=== PATIENT | female | born 1990 | race Caucasian/White ===

== ENCOUNTER 2022-01-07 16:32 | Emergency (ER) | payer OTHER ==
[~2022-01-07] VITALS: Ht 154.9 cm; Wt 47.7 kg
[2022-01-07 18:25] LABS: COVID AG,FIA SOURCE NASAL SWAB
[2022-01-07] MEDS ORDERED: ALBUTEROL SULFATE HFA 90 MCG/PUFF 8 GM INHALER IH ONE (19:30)
[2022-01-07 21:35] VITALS: BP 111/63
== END 2022-01-07 21:53 | disposition home or self-care (01) ==
LOC: EMS 16:32
DX: J06.9 Acute upper respiratory infection, unspecified (principal); Z20.822 Contact with and (suspected) exposure to COVID-19
CPT/HCPCS: 71046; 87430; 94640; 99284; J3535

== ENCOUNTER 2022-05-08 07:05 | Emergency (ER) | payer OTHER ==
[~2022-05-08] VITALS: Ht 165.1 cm; Wt 61.4 kg
[2022-05-08 07:36] LABS: BASOPHILS % (AUTO) 0.8 % (0.0-2.0); EOSINOPHILS % (AUTO) 0.4 % (1.0-6.0); HEMATOCRIT 38.8 % (36-46); LYMPHOCYTES # (AUTO) 3.3 K/uL (1.0-4.8); LYMPHOCYTES % (AUTO) 31.3 % (22.0-44.0); MEAN CORPUSCULAR HEMOGLOBIN 29.1 pg (26.0-34.0); MEAN CORPUSCULAR HGB CONC 33.6 G/dL (31.0-37.0); MEAN CORPUSCULAR VOLUME 87 fL (80-100); MONOCYTES # (AUTO) 0.8 K/uL (0.1-1.0); MONOCYTES % (AUTO) 7.5 % (2.0-9.0); NEUTROPHILS # (AUTO) 6.2 K/uL (1.8-7.7); PLATELET COUNT (AUTO) 321 K/uL (150-450); RED BLOOD CELL COUNT(AUTO) 4.48 MIL/uL (4.00-5.20); RED CELL DISTRIBUTION WIDTH 13.1 % (11.5-14.5)
[2022-05-08 07:45] LABS: ANION GAP 11 mmol/L (8-16); CALCIUM, TOTAL 9.3 mg/dL (8.8-10.5); CARBON DIOXIDE 25 mmol/L (22-29); CHLORIDE 104 mmol/L (98-107); CREATININE 0.67 mg/dL (0.60-1.30); GLOMERULAR FILTR. RATE CALC > 60 mL/min (>60); GLUCOSE,RANDOM 98 mg/dL (70-110); POTASSIUM 3.6 mmol/L (3.5-5.1); SODIUM SERUM 140 mmol/L (136-145); UREA NITROGEN, BLOOD 12 mg/dL (7-18)
[2022-05-08 07:59] LABS: ALANINE AMINOTRANSFERASE 10 U/L (12-78); ALKALINE PHOSPHATASE 66 U/L (46-116); ASPARTATE AMINOTRANSFERASE 14 U/L (15-37); BILIRUBIN,TOTAL 0.6 mg/dL (0.1-1.0); HCG,QUANTITATIVE < 1 mIU/mL (0-6); TOTAL PROTEIN, SERUM 7.8 g/dL (6.4-8.2)
[2022-05-08 08:03] LABS: AMPHET/METH SCREEN,URINE NEGATIVE (NEGATIVE); BARBITURATE SCREEN, URINE NEGATIVE (NEGATIVE); BENZODIAZEPINES SCREEN,URINE NEGATIVE (NEGATIVE); CANNABINOID SCREEN,URINE NEGATIVE (NEGATIVE); COCAINE SCREEN,URINE NEGATIVE (NEGATIVE); METHADONE SCREEN, URINE NEGATIVE (NEGATIVE); OPIATE SCREEN,URINE NEGATIVE (NEGATIVE)
[2022-05-08 08:05] LABS: PHENCYCLIDINE SCREEN,URINE NEGATIVE (NEGATIVE)
[2022-05-08] MEDS ORDERED: POTASSIUM PHOS,M-BASIC-D-BASIC 10 MMOL in DEXTROSE 5%-WATER 100 ML IV ONE (08:15)
[2022-05-08 08:56] VITALS: BP 118/72
[2022-05-08] MEDS ORDERED: SODIUM,POTASSIUM PHOSPHATES POWDER PACKET PO ONE (09:15)
== END 2022-05-08 09:31 | disposition home or self-care (01) ==
LOC: EMS 07:06
DX: R20.2 Paresthesia of skin (principal); E83.39 Other disorders of phosphorus metabolism; F10.20 Alcohol dependence, uncomplicated; F41.9 Anxiety disorder, unspecified
CPT/HCPCS: 99284; 96365; 80053; 83735; 84100; 84702; 85025; 36415; 93005; 80307; G0480; J7060; J3490

== ENCOUNTER 2022-11-04 11:50 | Emergency (ER) | payer OTHER ==
[~2022-11-04] VITALS: Ht 162.6 cm; Wt 61.4 kg
[2022-11-04 11:54] VITALS: BP 96/62
[2022-11-04 12:21] LABS: COVID AG,FIA SOURCE NASAL SWAB
[2022-11-04 13:14] LABS: INFLUENZA TYPE A NEGATIVE FOR TYPE A (NEGATIVE); INFLUENZA TYPE B NEGATIVE FOR TYPE B (NEGATIVE)
[2022-11-04 13:20] LABS: RAPID GROUP A STREP NEGATIVE (NEGATIVE)
[2022-11-04] MEDS ORDERED: AMOX500C2 PO (16:06)
[2022-11-04] MEDS ORDERED: BENZ-227 PO (16:06)
== END 2022-11-04 16:27 | disposition home or self-care (01) ==
LOC: EMS 11:57
DX: J06.9 Acute upper respiratory infection, unspecified (principal); Z20.822 Contact with and (suspected) exposure to COVID-19
CPT/HCPCS: 71045; 87430; 87804; 99284

== ENCOUNTER 2023-01-11 22:57 | Emergency (ER) | payer OTHER ==
[~2023-01-11] VITALS: Ht 165.1 cm; Wt 47.7 kg
[~2023-01-11 22:57] MED LIST: AMOX500C2 PO; BENZ-227 PO
[2023-01-11] MEDS ORDERED: ACETAMINOPHEN 325 MG TABLET PO ONE (23:30)
[2023-01-11 23:40] LABS: BASOPHILS % (AUTO) 0.6 % (0.0-2.0); EOSINOPHILS % (AUTO) 4.3 % (1.0-6.0); HEMATOCRIT 38.8 % (36-46); HEMOGLOBIN 12.7 g/dL (12.0-16.0); LYMPHOCYTES # (AUTO) 1.9 K/uL (1.0-4.8); LYMPHOCYTES % (AUTO) 28.2 % (22.0-44.0); MEAN CORPUSCULAR HEMOGLOBIN 28.4 pg (26.0-34.0); MEAN CORPUSCULAR HGB CONC 32.7 G/dL (31.0-37.0); MEAN CORPUSCULAR VOLUME 87 fL (80-100); MONOCYTES # (AUTO) 0.6 K/uL (0.1-1.0); MONOCYTES % (AUTO) 8.5 % (2.0-9.0); NEUTROPHILS % (AUTO) 58.4 % (40.0-70.0); PLATELET COUNT (AUTO) 308 K/uL (150-450); RED BLOOD CELL COUNT(AUTO) 4.47 MIL/uL (4.00-5.20); RED CELL DISTRIBUTION WIDTH 13.4 % (11.5-14.5)
[2023-01-11 23:41] LABS: COVID AG,FIA SOURCE NASOPHARYNGEAL
[2023-01-12 00:03] LABS: ANION GAP 12 mmol/L (8-16); CALCIUM, TOTAL 8.8 mg/dL (8.8-10.5); CARBON DIOXIDE 25 mmol/L (22-29); CHLORIDE 103 mmol/L (98-107); CREATININE 0.61 mg/dL (0.60-1.30); GLOMERULAR FILTR. RATE CALC > 60 mL/min (>60); GLUCOSE,RANDOM 117 mg/dL (70-110); POTASSIUM 3.3 mmol/L (3.5-5.1); SODIUM SERUM 140 mmol/L (136-145)
[2023-01-12 00:04] LABS: INFLUENZA TYPE A NEGATIVE FOR TYPE A (NEGATIVE); INFLUENZA TYPE B NEGATIVE FOR TYPE B (NEGATIVE)
[2023-01-12 00:09] LABS: ALANINE AMINOTRANSFERASE 8 U/L (12-78); ALBUMIN 3.5 g/dL (3.4-5.0); ALKALINE PHOSPHATASE 77 U/L (46-116); ASPARTATE AMINOTRANSFERASE 15 U/L (15-37); BILIRUBIN,TOTAL 0.3 mg/dL (0.1-1.0); CREATINE KINASE, TOTAL ONLY 68 U/L (26-192); TOTAL PROTEIN, SERUM 7.4 g/dL (6.4-8.2)
[2023-01-12 00:10] LABS: B-TYPE NATRIURETIC PEPTIDE 14 pg/mL (0-100)
[2023-01-12] MEDS ORDERED: BENZ-227 PO (00:21)
[2023-01-12 00:35] VITALS: BP 121/72
== END 2023-01-12 00:35 | disposition home or self-care (01) ==
LOC: EMS 22:58
DX: B34.9 Viral infection, unspecified (principal); J45.909 Unspecified asthma, uncomplicated; Z20.822 Contact with and (suspected) exposure to COVID-19
CPT/HCPCS: 71045; 80053; 82550; 83880; 84484; 84703; 85025; 87804; 93005; 99285; 36415-L1; 36415-TC

== ENCOUNTER → 2023-09-29 | Emergency (ER) | payer OTHER ==
[~2023-09-29] VITALS: Ht 154.9 cm; Wt 50.0 kg
[~2023-09-29] MED LIST changes: +PRED-554 PO; +TRI115O TP
[2023-09-29 14:45] VITALS: BP 103/60; PULSE 68; RESP 16; TEMP 98.4
[2023-09-29] MEDS: PredniSONE 20 MG TABLET PO ONE (15:38)
== END | disposition still patient (30) ==
LOC: EMS 14:38
DX: L25.9 Unspecified contact dermatitis, unspecified cause (principal); J45.909 Unspecified asthma, uncomplicated
CPT/HCPCS: 99283; J7512

== ENCOUNTER 2024-06-16 09:42 | Emergency (ER) | payer MEDICAID, OTHER ==
[~2024-06-16] VITALS: Ht 162.6 cm; Wt 65.9 kg
[2024-06-16 09:49] VITALS: TEMP 98.6
[2024-06-16 09:52] LABS: COVID AG,FIA SOURCE NASAL SWAB
[2024-06-16 10:40] LABS: INFLUENZA TYPE A NEGATIVE FOR TYPE A (NEGATIVE); INFLUENZA TYPE B NEGATIVE FOR TYPE B (NEGATIVE); SARS-COV2 (COVID) ANTIGEN,FIA Negative (Negative)
[2024-06-16] MEDS ORDERED: PSEU-191 PO (11:43)
[2024-06-16] MEDS ORDERED: IBUP-1554 PO (11:43)
[2024-06-16] MEDS ORDERED: ACET-66 PO (11:43)
[2024-06-16] MEDS ORDERED: BENZ-227 PO (11:43)
[2024-06-16 11:59] VITALS: BP 111/51; PULSE 77; RESP 16; O2SAT 97
== END 2024-06-16 12:04 | disposition home or self-care (01) ==
LOC: EMS 09:42
DX: J02.8 Acute pharyngitis due to other specified organisms (principal); J20.9 Acute bronchitis, unspecified; B97.89 Other viral agents as the cause of diseases classified elsewhere; J45.909 Unspecified asthma, uncomplicated; Z79.52 Long term (current) use of systemic steroids; Z20.822 Contact with and (suspected) exposure to COVID-19
CPT/HCPCS: 87804; 99283